=== PATIENT | male | born 1950 | race Caucasian/White ===

== ENCOUNTER 2017-06-20 15:29 | Emergency (ER) | payer MEDICARE, OTHER ==
[2017-06-20] MEDS: DIPHTH/TET/ACEL PERTUSS (ADULT) 0.5 ML VIAL IM* (19:03)
== END 2017-06-20 19:07 | disposition home or self-care (01) ==
LOC: E/R 15:29 → FTE 19:07
DX: M79.644 Pain in right finger(s) (principal); M25.511 Pain in right shoulder; Z23 Encounter for immunization
CPT/HCPCS: 73030; 73030-RT; 73130-RT; 90471; 90715; 99283-25